=== PATIENT | female | born 2005 | race Hispanic/Latino ===

== ENCOUNTER 2024-05-21 10:07 | Day surgery (SDC) | payer MEDICAID, OTHER ==
[2024-05-21 12:51] LABS: Bilirubin Neg (Negative); Blood, Urine Negative (Negative); Clarity Clear (Clear); Glucose, Urine (Dipstick) Normal (Negative); Ketone, Urine Negative (Negative); Leukocyte Negative (Negative); Nitrite Negative (Negative); Protein, Urine (Dipstick) Negative (Neg-Trace); Urobilinogen Normal mg/dL (Less than 2)
[2024-05-21 13:07] LABS: Fetal Membranes Rupture No Membranes Rupture (No Rupture)
[2024-05-21] MEDS ORDERED: hydrALAZINE 20 MG/ML VIAL SLOW IVP PRN (14:34)
[2024-05-21 14:36] LABS: Bacteria/HPF None Seen HPF (None Seen); CAUTI Indications for Culture Pregnancy; RBC/HPF None Seen HPF (0-3); Squamous Epithelial 0-3 HPF (0-3); WBC/HPF None Seen HPF (0-3)
[2024-05-21 14:37] LABS: Urine Culture Reflex Yes Yes
[2024-05-22 04:51] LABS: Chlamydia by PCR, Vaginal Swab Not Detected (NotDetected); GC by PCR, Vaginal Swab Not Detected (NotDetected)
== END 2024-05-21 14:41 | disposition home health service (06) ==
LOC: CSHLD/OP 10:07
PROVIDERS: ATTEND Obstetrics & Gynecology
DX: O99.891 Other specified diseases and conditions complicating pregnancy (principal); R10.2 Pelvic and perineal pain; M54.50 Low back pain, unspecified; M25.559 Pain in unspecified hip; O24.419 Gestational diabetes mellitus in pregnancy, unspecified control; O23.593 Infection of other part of genital tract in pregnancy, third trimester; N89.8 Other specified noninflammatory disorders of vagina; Z79.899 Other long term (current) drug therapy; Z3A.39 39 weeks gestation of pregnancy
CPT/HCPCS: 81001; 84112; 87086; 87480; 87491; 87510; 87591; 87660; 99283

== ENCOUNTER 2025-07-20 23:01 | Emergency (ER) | payer MEDICAID ==
[2025-07-21] MEDS ORDERED: Amoxicillin/Potassium Clav 875 MG TAB ONE (00:40)
== END 2025-07-21 00:43 | disposition home or self-care (01) ==
LOC: CSHERS 23:01
DX: O99.613 Diseases of the digestive system complicating pregnancy, third trimester (principal); K08.89 Other specified disorders of teeth and supporting structures; Z3A.35 35 weeks gestation of pregnancy